=== PATIENT | female | born 1955 | race Caucasian/White ===

== ENCOUNTER → 2019-06-12 12:10 | Outpatient (BNVA) | payer BC, SELFPAY | PROVIDERS: Family Provider Family Medicine; PCP Family Medicine; Visit Provider Nurse Practitioner | DX: Z00.00 Encounter for general adult medical examination without abnormal findings (principal); N95.1 Menopausal and female climacteric states | CPT/HCPCS: 80053; 80061; 85025 ==

== ENCOUNTER 2020-04-16 10:50 | Outpatient (CLI) | payer BC, SELFPAY ==
--- NOTE | 2020-04-16 10:59 | XR_ITS ---
WS: [id number] Bilateral hips, AP and frog leg, 04/16/2020 Clinical Data: right and left hip pain Comparison: None. Findings: Right hip: No fractures or dislocations are seen. There is no narrowing, erosion or sclerosis. The adjacent righ t pelvis is unremarkable. There are probable uterine leiomyoma calcifications. Left hip: No fractures or dislocations are seen. There is no narrowing, erosion or sclerosis. The adjacent left pelvis is unremarkable. The probable uterine leiomyoma calcifications are seen. XR/XR hip BI 3-4V wo/w pel [id number] Impression: Negative bilateral hips.
== END 2020-04-16 10:51 | disposition home or self-care (01) ==
PROVIDERS: PCP Family Medicine; Visit Provider Family Medicine
DX: M25.552 Pain in left hip (principal); M25.551 Pain in right hip
CPT/HCPCS: 73522

== ENCOUNTER 2020-04-20 10:44 | Outpatient (RCR) | payer BC, SELFPAY | END 2020-04-29 23:59 | disposition home or self-care (01) | LOC: SPT 10:44 | PROVIDERS: PCP Family Medicine; Referring Provider Family Medicine; Visit Provider Family Medicine | DX: M25.551 Pain in right hip (principal); M25.552 Pain in left hip | CPT/HCPCS: 97110; 97161 ==

== ENCOUNTER 2020-04-30 06:00 | Outpatient (RCR) | payer BC, SELFPAY | END 2020-05-30 23:59 | disposition home or self-care (01) | LOC: SPT 06:00 | PROVIDERS: PCP Family Medicine; Referring Provider Family Medicine; Visit Provider Family Medicine | DX: M25.551 Pain in right hip (principal); M25.552 Pain in left hip | CPT/HCPCS: 97110 ==

== ENCOUNTER → 2020-06-17 10:39 | Outpatient (BNVA) | payer BC, SELFPAY | PROVIDERS: PCP Family Medicine; Visit Provider Family Medicine | DX: Z13.6 Encounter for screening for cardiovascular disorders (principal); Z12.31 Encounter for screening mammogram for malignant neoplasm of breast; Z78.0 Asymptomatic menopausal state; Z00.00 Encounter for general adult medical examination without abnormal findings; K51.919 Ulcerative colitis, unspecified with unspecified complications | CPT/HCPCS: 80053; 80061; 85025; 88175 ==

== ENCOUNTER 2020-07-06 07:15 | Outpatient (CLI) | payer BC, SELFPAY ==
--- NOTE | 2020-07-06 07:15 | US_ITS ---
WS: [id number] ULTRASOUND PELVIS TECHNIQUE: Transvaginal. CLINICAL INFORMATION: uterine fullness LMP: : No. COMPARISON: None. FINDINGS: Uterus Orientation: Anteverted. Size: 8.1 x 5.1 x 5.8 cm Masses: Multiple large shadowing fibroids in the uterus. The largest fibroids measure 5.1 x 5.8 cm, 3 .8 x 4.0 x 2.4 cm, and 3.1 x 3.4 x 3.2 CM. Cervix: Heterogeneous area in the cervix. Endometrium: Not identified Adnexa: Neither ovary is identified Free fluid: None Other findings: None. US/US transvaginal [id number] IMPRESSION: 1. Multiple shadowing fibroids fibroids noted in the uterus largest measuring 5.1 x 5.8 cm and 4.0 x 3.8 cm. 2. Endometrium is not visualized due to displacement by large fibroids. 3. Neither ovary is visualized. 4. Heterogeneity along the internal cervical os cervix. Recommend direct visua lization. 5. No free fluid in the cul-de-sac.
== END 2020-07-06 07:16 | disposition home or self-care (01) ==
LOC: RAD 07:17
PROVIDERS: PCP Family Medicine; Visit Provider Family Medicine
DX: Z01.419 Encounter for gynecological examination (general) (routine) without abnormal findings (principal); D25.9 Leiomyoma of uterus, unspecified
CPT/HCPCS: 76830

== ENCOUNTER 2020-07-28 13:20 | Outpatient (CLI) | payer BC, SELFPAY ==
--- NOTE | 2020-07-28 13:30 | MM_ITS ---
WS: [id number] BILATERAL DIGITAL SCREENING MAMMOGRAPHY WITH CAD CLINICAL INFORMATION: screening mammogram HISTORY: Screening mammogram. No current complaints. COMPARISON: TECHNIQUE: Bilateral CC and MLO views. FINDINGS: Scattered fibroglandular densities bilaterally. No suspicious focal mass, asymmetry, calcifications, or architectural distortion. No evidence of malignancy. MM/[place] [id number] IMPRESSION: BI-RADS: 1-Negative FOLLOW UP: 1 Year Follow-up Recommend return to annual screening mammography.
--- NOTE | 2020-07-28 13:55 | XR_ITS ---
WS: [id number] SCREENING DEXA SCAN [employer] CLINICAL INFORMATION: post-enopausal COMPARISON: None. FINDINGS: The L1-L4 bone mineral density measures 0.963 g/cm2. This corresponds to a T score score of -1.8 and Z score of -0.6. Left femoral neck bone mineral density measures 0.890 g/cm2. This corresponds to a T score of -0.9 an d Z score of 0.0. Right femoral neck bone mineral density measures 0.893 g/cm2. This corresponds to a T score -0.9of an d Z score of 0.0. Mean femoral neck bone mineral density measures 0.891 g/cm2. This corresponds to a T score of -0.9 an d Z score of 0.0. XR/XR DEXA axial skeleton* [id number] IMPRESSION: Osteopenia Patient's FRAX calculated 10 year probability for major osteoporotic fracture i s 14.3 % and osteoporotic hip fracture is 1.4%.
== END 2020-07-28 13:21 | disposition home or self-care (01) ==
LOC: RADSHAW 13:22
PROVIDERS: PCP Family Medicine; Visit Provider Family Medicine
DX: Z78.0 Asymptomatic menopausal state (principal); Z12.31 Encounter for screening mammogram for malignant neoplasm of breast; M85.89 Other specified disorders of bone density and structure, multiple sites
CPT/HCPCS: 77067; 77080

== ENCOUNTER → 2020-08-24 11:33 | Outpatient (BNVA) | payer BC, SELFPAY | PROVIDERS: PCP Family Medicine; Visit Provider Family Medicine | DX: M79.10 Myalgia, unspecified site (principal); Z13.6 Encounter for screening for cardiovascular disorders | CPT/HCPCS: 80053; 85025; 85651; 86038; 86140 ==

== ENCOUNTER → 2020-10-04 09:01 | Outpatient (BNVA) | payer BC, SELFPAY | PROVIDERS: PCP Family Medicine; Visit Provider Internal Medicine Rheumatology | DX: M35.3 Polymyalgia rheumatica (principal); Z79.52 Long term (current) use of systemic steroids; Z87.891 Personal history of nicotine dependence | CPT/HCPCS: 99204 ==

== ENCOUNTER → 2021-01-05 10:31 | Outpatient (BNVA) | payer BC, SELFPAY | PROVIDERS: PCP Family Medicine; Visit Provider Internal Medicine Rheumatology | DX: M35.3 Polymyalgia rheumatica (principal); Z71.89 Other specified counseling; Z79.899 Other long term (current) drug therapy | CPT/HCPCS: 36415; 80076; 82565; 85025; 86140 ==

== ENCOUNTER → 2021-01-10 13:25 | Outpatient (BNVA) | payer BC, SELFPAY | PROVIDERS: PCP Family Medicine; Visit Provider Internal Medicine Rheumatology | DX: M35.3 Polymyalgia rheumatica (principal); Z11.59 Encounter for screening for other viral diseases; Z11.1 Encounter for screening for respiratory tuberculosis; Z79.899 Other long term (current) drug therapy; Z79.52 Long term (current) use of systemic steroids; Z71.89 Other specified counseling; Z87.891 Personal history of nicotine dependence | CPT/HCPCS: 99214 ==

== ENCOUNTER 2021-04-21 11:01 | Outpatient (CLI) | payer BC, SELFPAY ==
[2021-04-21 11:16] LABS: Basophils % 0.6 %; Eosinophils # 0.1 10^3/uL (0.0-0.8); Eosinophils % 0.7 %; Hematocrit 41.7 % (37.0-47.0); Hemoglobin 13.5 g/dL (11.5-15.3); Lymphocytes # 2.2 10^3/uL (0.8-4.8); Lymphocytes % 32.1 %; Mean Corpuscular HGB Conc 32.4 g/dL (30.0-36.0); Mean Corpuscular Hemoglobin 27.9 pg (28.0-34.0); Mean Corpuscular Volume 86.2 fl (81-99); Mean Platelet Volume 10.2 fL (7.4-10.4); Monocytes # 0.4 10^3/uL (0.2-0.9); Monocytes % 6.3 %; Neutrophils # 4.04 10^3/uL (1.8-7.7); Neutrophils % 60.2 %; Nucleated Red Blood Cells % 0 %; Platelet Count 261 10^3/cmm (130-400); Red Blood Count 4.84 10^6/uL (4.1-5.3); Red Cell Distribution Width 12.8 % (12.1-15.1); White Blood Count 6.7 10^3/uL (4.0-10.0)
[2021-04-21 11:36] LABS: Alanine Aminotransferase 13 U/L (0-33); Albumin Level 4.1 g/dL (3.5-5.2); Alkaline Phosphatase 60 IU/L (35-105); Aspartate Amino Transferase 15 U/L (0-32); Globulin 2.6 g/dL (1.3-4.6); Glomerular Filtration Rate 100.6 mL/min (90-130); Total Bilirubin 0.3 mg/dL (0.15-1.2); Total Protein 6.7 g/dL (6.6-8.7)
== END 2021-04-21 11:02 | disposition home or self-care (01) ==
LOC: LAB 11:02
PROVIDERS: PCP Family Medicine; Visit Provider Internal Medicine Rheumatology
DX: M35.3 Polymyalgia rheumatica (principal); Z79.899 Other long term (current) drug therapy
CPT/HCPCS: 36415; 80076; 82565; 85025; 86140

== ENCOUNTER → 2022-01-05 09:09 | Outpatient (BNVA) | payer BC, SELFPAY | PROVIDERS: PCP Family Medicine; Visit Provider Family Medicine | DX: Z13.6 Encounter for screening for cardiovascular disorders (principal); N95.1 Menopausal and female climacteric states | CPT/HCPCS: 80053; 80061; 85025 ==

== ENCOUNTER 2022-04-28 07:53 | Outpatient (CLI) | payer BC, SELFPAY ==
--- NOTE | 2022-04-28 08:06 | US_ITS ---
WS: [id number] ULTRASOUND SOFT TISSUES RIGHT hand, third digit. HISTORY: M25.841 - Other specified joint disorders, right hand COMPARISON: None available. TECHNIQUE: 2-D and color Doppler imaging is submitted. Palpable area along the volar surface of the third digit of the RIGHT hand is identified. There is a hypoechoic slightly lobulated mass measuring 1.7 x 1.5 x 0.4 cm. There is no increased vascularity. This is very superficial mass. Very nonspecific appearance of the soft tissue mass. This is not particularly vascular. US/US soft tissue/extremity [id number] IMPRESSION: 1. Soft tissue mass associated with the volar aspect third finger RIGHT hand. Very nonspecific appearance by ultrasound. The differential includes nerve fuentes th tumor, hamartoma and fibromas. May need to be surgically excised for definit tanmay diagnosis. 2. No associated adjacent soft tissue edema.
== END 2022-04-28 07:54 | disposition home or self-care (01) ==
PROVIDERS: PCP Family Medicine; Visit Provider Internal Medicine Rheumatology
DX: M25.841 Other specified joint disorders, right hand (principal)
CPT/HCPCS: 76882

== ENCOUNTER → 2022-06-21 09:15 | Outpatient (BNVA) | payer BC, SELFPAY | PROVIDERS: PCP Family Medicine; Referring Provider Internal Medicine Rheumatology; Visit Provider Nurse Practitioner Family | DX: M67.441 Ganglion, right hand (principal) | CPT/HCPCS: 73130 ==

== ENCOUNTER 2022-08-15 10:36 | Outpatient (CLI) | payer BC, SELFPAY ==
--- NOTE | 2022-08-15 11:00 | MR_ITS ---
WS: [id number] MRI OF THE HAND WITHOUT GADOLINIUM ENHANCEMENT. INDICATION: Nodule/cyst. On the 3rd finger TECHNIQUE: MRI of the RIGHT hand without gadolinium enhancement. Coronal T1, STIR, sagittal T2, axial T2 fat sat, axial T1, coronal 3-D FSPGR FINDINGS: In the area of palpable concern there is a T2 hyperintense decreased T1 signal ovoid lesion measuring approximately 16.0 x 10.6 x 7.0 mm AP by transverse by craniocaudal. This extends along the dorsal slightly ulnar aspect of the 3rd middle phalanx. No significant bony er osion. No edema in the underlying phalanx. Soft tissue nodule extends along the extensor tendon sheat h. This has a solid appearance on the prior ultrasound and differential considerations described ramiro w. Small erosive T2 hyperintense lesions involving the 3rd distal middle phalanx extending to the IP cesar nt and 3rd distal proximal phalanx. Additional small periarticular erosions involving the metacarpal heads and distal proximal phalanges. Mild associated synovial thickening and edema involving the MCP and PIP joints MR/MR hand RT wo con* [id number] IMPRESSION: 1. Ovoid T2 hyperintense nodule in the area of palpable concern extending john g the 3rd dorsal middle phalanx slightly eccentric to the ulna aspect. This inv olves the extensor tendon sheath. This has a solid appearance and differential considerations include giant cell tumor of the tendon sheath, fibroma of the te ndon sheath, nerve sheath tumor, and less likely complex ganglion. 2. Periarticular erosive changes involving the MCP joints and PIP joints with relative sparing of the DIP joints. Recommend correlation with rheumatoid facto r and inflammatory arthropathies. 3. Mild synovial thickening and edema involving the MCP and PIP joints as well as the 1st MCP and DIP joint.
== END 2022-08-15 10:37 | disposition home or self-care (01) ==
LOC: RAD 10:38
PROVIDERS: PCP Family Medicine; Visit Provider Specialist
DX: M67.441 Ganglion, right hand (principal)
CPT/HCPCS: 73218

== ENCOUNTER 2022-08-16 10:51 | Outpatient (CLI) | payer BC, SELFPAY ==
--- NOTE | 2022-08-16 10:58 | MM_ITS ---
WS: [id number] Bilateral screening 3D tomosynthesis digital mammogram, 08/16/2022 Clinical Data: screening mammogram Comparison: 07/28/2020, 07/22/2018. Findings: The breast parenchymal pattern shows fibroglandular tissue. No spiculated masses or clustered calcifi cations are seen. There are no secondary signs of carcinoma. There are mole markers on the left breas t. MM/[place] [id number] Impression: 1. Negative bilateral mammogram unchanged. 2. Recommend annual screening mammograms. BIRADS: 1-Negative FOLLOW UP: 1 Year Follow-up The CAD title checker was used.
== END 2022-08-16 10:52 | disposition home or self-care (01) ==
LOC: RAD 10:53
PROVIDERS: PCP Family Medicine; Visit Provider Family Medicine
DX: Z12.31 Encounter for screening mammogram for malignant neoplasm of breast (principal)
CPT/HCPCS: 77063; 77067

== ENCOUNTER 2023-02-06 14:16 | Outpatient (CLI) | payer MEDICARE, SELFPAY ==
--- NOTE | 2023-02-06 14:30 | XR_ITS ---
WS: [id number] DEXA (DUAL ENERGY X-RAY ABSORPTIOMETRY) Bone mineral density was performed using a Bion[employer] machine. HISTORY: post-menopausal COMPARISON: 07/28/2020 Lumbar spine BMD (L1-L4): 0.966 g/cm2 T score: -1.8 Z score: -0.5 Total hip BMD: Left: 0.917 g/cm2. T score: -0.7 Z score: 0.3 Right: 0.926 g/cm2. T score: -0.6 Z score: 0.4 10 year probability of a major osteoporotic fracture is 14.7%. Compared to the prior study from 07/28/2020. Lumbar spine bone mineral density has increased by 0.3%. Bilateral hips bone mineral density has increased by 3.5%. IMPRESSION: OSTEOPENIA based upon the WHO classification for females. Significant increase in bone mineral density within the hips since the prior study.
== END 2023-02-06 14:17 | disposition home or self-care (01) ==
LOC: RAD 14:18
PROVIDERS: PCP Family Medicine; Visit Provider Family Medicine
DX: Z78.0 Asymptomatic menopausal state (principal); M85.80 Other specified disorders of bone density and structure, unspecified site
CPT/HCPCS: 77080

== ENCOUNTER → 2023-07-16 11:54 | Outpatient (BNVA) | payer MEDICARE, SELFPAY | PROVIDERS: PCP Family Medicine; Visit Provider Family Medicine | DX: Z13.6 Encounter for screening for cardiovascular disorders (principal) | CPT/HCPCS: 80053; 80061; 85025 ==

== ENCOUNTER 2024-06-03 08:43 | Outpatient (CLI) | payer MEDICARE, SELFPAY ==
--- NOTE | 2024-06-03 08:49 | MM_ITS ---
WS: [id number] BILATERAL 3D TOMOSYNTHESIS DIGITAL SCREENING MAMMOGRAPHY WITH CAD CLINICAL INFORMATION: SCREENING HISTORY: Screening mammogram. No current complaints. COMPARISON: 2022 TECHNIQUE: Bilateral CC and MLO views. FINDINGS: Scattered fibroglandular densities bilaterally. No suspicious focal mass, asymmetry, calcifications, or architectural distortion. No evidence of malignancy. MM/MM scr BI tomosynthesis [id number] IMPRESSION: DENSITY: There are scattered areas of fibroglandular density. BI-RADS: 1 - Negative. FOLLOW UP: 1 Year Follow-up Recommend return to annual screening mammography.
== END 2024-06-03 08:44 | disposition home or self-care (01) ==
PROVIDERS: PCP Family Medicine; Visit Provider Family Medicine
DX: Z12.31 Encounter for screening mammogram for malignant neoplasm of breast (principal); R92.323 Mammographic fibroglandular density, bilateral breasts
CPT/HCPCS: 77063; 77067

== ENCOUNTER 2024-09-13 16:09 | Emergency (ER) | payer MEDICARE, SELFPAY ==
[2024-09-13 16:47] VITALS: BP 142/82; PULSE 66; RESP 18; TEMP 36.5; O2SAT 99
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
--- NOTE | 2024-09-13 18:36 | XRR_ITS ---
PROCEDURE INFORMATION: Exam: XR Left Forearm Exam date and time: 09/13/2024 7:22 PM Age: 69 years old Clinical indication: Injury or trauma; Fall; Fracture, traumatic injury; Closed fracture; Radius and ulna; Left; Additional info: Post reduc TECHNIQUE: Imaging protocol: Radiologic exam of the left forearm. Views: 2 views. COMPARISON: CR (UP EXM, ) 09/13/2024 5:17 PM FINDINGS: Bones/joints: Improved alignment of distal radius fracture status post reduction. Intra-articular fracture planes present. Stable styloid process fracture. Faint lucency along the scaphoid waist likely represents normal patient anatomy. Soft tissues: Soft tissues appear swollen and edematous about the wrist. XR/XR forearm LT 2V [id number] IMPRESSION: 1. Improved alignment of distal radius fracture status post reduction. Intra-articular fracture planes present. 2. Stable styloid process fracture. 3. Faint lucency along the scaphoid waist likely represents normal patient anatomy. Recommend follow-up dedicated wrist radiograph in 7-10 days to exclude occult scaphoid waist fracture.
--- NOTE | 2024-09-13 18:36 | XRR_ITS ---
PROCEDURE INFORMATION: Exam: XR Left Ankle Exam date and time: 09/13/2024 7:29 PM Age: 69 years old Clinical indication: Injury or trauma; Fall; Blunt trauma; Ankle; Left; Additional info: L ankle inj TECHNIQUE: Imaging protocol: Radiologic exam of the left ankle. Views: 3 or more views. COMPARISON: US soft tissue/extremity [id number] 04/28/2022 8:11 AM FINDINGS: Bones/joints: Minimal calcaneal spurring. Probable fracture of the distal lateral malleolus, poorly visualized. Soft tissues: Soft tissue swelling about the lateral malleolus. XR/XR ankle LT min 3V* [id number] IMPRESSION: 1. Probable fracture of the distal lateral malleolus, poorly visualized. 2. Soft tissue swelling about the lateral malleolus.
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
[2024-09-13] MEDS: ondansetron 2 mg/ML SDV 2 mL 4 MG IVP (19:03)
[2024-09-13 19:04] VITALS: RESP 16; O2SAT 99
[2024-09-13] MEDS: morphine 4 mg/mL SDV 1 mL IVP (19:04)
[2024-09-13 19:13] VITALS: BP 170/76; PULSE 71; RESP 15; O2SAT 97
[2024-09-13 19:19] VITALS: BP 149/59; PULSE 73; RESP 12; O2SAT 99
[2024-09-13] MEDS: propofol 10 mg/mL SDV 20 mL 150 MG IVP (19:24)
--- NOTE | 2024-09-13 19:39 | PC.NURSE ---
WASTED 30MG PROPOFOL WITH OLIVA FERNANDEZ in [facility] and [facility] btl.
[2024-09-13 20:01] VITALS: BP 158/71; PULSE 65; RESP 16; O2SAT 97
[2024-09-13 21:05] VITALS: BP 133/77; PULSE 69; O2SAT 99
[2024-09-13] MEDS: HYDROcodone-acetaminophen 5-325 mg Tablet 1 TAB PO (21:05)
== END 2024-09-13 21:06 | disposition home or self-care (01) ==
PROVIDERS: Emergency Provider Emergency Medicine; PCP Family Medicine
DX: S82.832A Other fracture of upper and lower end of left fibula, initial encounter for closed fracture (principal); S52.502A Unspecified fracture of the lower end of left radius, initial encounter for closed fracture; V86.59XA Driver of other special all-terrain or other off-road motor vehicle injured in nontraffic accident, initial encounter
CPT/HCPCS: 25605; 29125; 29515; 36415; 73090; 73110; 73610; 96374; 96375; 99152; 99284; J2270; J2405; J2704; J9999

== ENCOUNTER 2024-09-14 08:54 | Emergency (ER) | payer MEDICARE, SELFPAY ==
[2024-09-14 09:08] VITALS: BP 105/60; PULSE 89; RESP 17; TEMP 36.8; O2SAT 100; BMI 25.8
--- NOTE | 2024-09-14 11:08 | ED_ITS ---
HPI - Extremity Problem General: Chief complaint: Extremity Injury, Upper Stated complaint: lft arm pain, swelling Time Seen by Provider: 09/14/24 10:49 Source: patient Mode of arrival: ambulatory Limitations: no limitations History of Present Illness: 69-year-old female seen here yesterday f or radius and ulna fracture states she feels like her splint is too tight she been having some pain in her fingers she denies any decrease sensation rates her pain a 6 out of 10 Associated symptoms: Deny chest pain, fever(s) or rash Related Data Previous Rx's ?Medication ?Instructions ?Recorded alendronate 70 mg tablet (Fosamax) 70 mg PO .once week ly #12 tabs 02/09/23 venlafaxine 37.5 mg tablet See Rx Instructions .Route 01/17/24 .COMPLEX #90 tabs hydrocodone 5 mg-acetaminophen 325 1 tab PO Q8H PRN pa in #10 tabs 09/13/24 mg tablet Allergies Allergy/AdvReac Type Severity Reaction Status Date / Time Sulfa (Sulfonamide Allergy ALGY-Rash Verified 07/16/23 11:14 Antibiotics) Review of Systems Const: Denies: fever(s), chills, body aches or change in appetite ENMT: Denies: throat pain or dental pain Card: Denies: chest pain Resp: Denies: dyspnea GI: Denies: abdominal pain, nausea, vomiting or diarrhea : Denies: dysuria Musc: Reports: extremity pain; Denies: neck pain or back pain Skin/Breast: Denies: rash Neuro: Denies: headache(s) PFS ED PFSH: Medical History Mucous cyst of finger Immunization counseling Chronic steroid use Polymyalgia rheumatica Ulcerative colitis, chronic Menopausal syndrome Surgical History S/P tonsillectomy S/P appendectomy (~2013) Family History Mother Heart disease Stroke Grandfather Heart disease maternal Hypertension maternal Family/Other Heart disease maternal uncles x5 Other Colon cancer Denies family history of Ovarian cancer Diabetes Clotting disorder Hyperlipidemia Breast cancer Anesthesia complication Bleeding disorder Uterine cancer Thyroid disease Social History Smoking and tobacco/nicotine status: never used tobacco/nicotine Second hand smoke exposure: No Alcohol intake: current Alcohol intake frequency: holidays/special occasions only Substance/Drug Use: never Physical Exam Const: COMMON NORMALS: no acute distress, patient oriented x3 and healthy appearing HENMT: COMMON NORMALS: normocephalic and atraumatic HEAD & SCALP: normocephalic and atraumatic Eye: COMMON NORMALS: conjunctivae normal CONJUNCTIVA: Yes conjunctivae normal Neck/C-Spine: COMMON NORMALS: full ROM and supple Chest: COMMONS NORMALS: normal inspection of the chest Resp: COMMON NORMALS: normal respiratory effort, No retractions, No use of accessory muscles and clear to auscultation bilaterally AUSCULTATION: clear to auscultation bilaterally Cardio: COMMON NORMALS: regular rate RATE: regular rate Extremity: NARRATIVE EXTREMITY EXAM: Removed patient's splint no signs of compartment syndrome's good sensation to her fingers did loosen up the Cj wrap and she felt much improved did rewrap it Neuro: COMMON NORMALS: patient oriented x3, moves all extremities and no focal motor deficits Psych: COMMON NORMALS: mental status grossly normal, Normal thought process present and cooperative THOUGHT PROCESS: Normal thought process present Skin: COMMON NORMALS: no rashes or lesions noted and no wounds GENERAL SKIN EXAM: no rashes or lesions noted Course Vital Signs: Vital signs: Vital Signs Temperature 98.3 F 09/14/24 09:08 Pulse Rate 89 09/14/24 09:08 Respiratory Rate 17 09/14/24 09:08 Blood Pressure 105/60 09/14/24 09:08 Pulse Oximetry 100 09/14/24 09:08 Oxygen Delivery Me thod Room Air 09/14/24 09:08 MDM - Extremity (Nontraumatic) Medical Decision Making Patient presents here with arm pain likely from Cj wrap being slightly too tight I did loosen it she felt much improved had no signs of compartment syndrome will discharge she is to follow-up with Ortho. Medical Records I reviewed the patient's medical records. No radiology studies performed this visit Discharge Plan Discharge Patient Disposition: Home Clinical Impression: Fracture of distal end of fibula, Distal radial fracture Condition: Stable Prescriptions: No Action alendronate [Fosamax] 70 mg tablet 70 mg PO .once weekly Qty: 12 3RF venlafaxine 37.5 mg tablet See Rx Instructions .ROUTE .COMPLEX Qty: 90 1RF Dose Instruction: TAKE 1 TABLET BY MOUTH EVERY DAY AT BEDTIME Rx Instructions: TAKE 1 TABLET BY MOUTH EVERY DAY AT BEDTIME hydrocodone-acetaminophen 5-325 mg tablet 1 tab PO Q8H PRN (Reason: pain) Qty: 10 0RF Discharge Orders: Discharge ED (Routine); Ordered 09/14/24 Ordered By: Barrett Gutierrez Referrals: Kimmy Cazares MD [Primary Care Provider, Family Practice] Discharge Diet: Advance as tolerated Discharge Activity: Resume usual activity Patient Instructions: Wrist Fracture in Adults (ED) Print Language: Bulgarian Coding Level of Care Code ED Ornamental Machine Operator for Carlos Anderson
== END 2024-09-14 11:16 | disposition home or self-care (01) ==
PROVIDERS: Emergency Provider Emergency Medicine; PCP Family Medicine
DX: S82.832D Other fracture of upper and lower end of left fibula, subsequent encounter for closed fracture with routine healing (principal); S52.502D Unspecified fracture of the lower end of left radius, subsequent encounter for closed fracture with routine healing; X58.XXXD Exposure to other specified factors, subsequent encounter
CPT/HCPCS: 99281

== ENCOUNTER → 2024-09-18 14:34 | Outpatient (BNVA) | payer MEDICARE, SELFPAY | PROVIDERS: PCP Family Medicine; Visit Provider Orthopaedic Surgery | DX: Z01.818 Encounter for other preprocedural examination (principal); Z09 Encounter for follow-up examination after completed treatment for conditions other than malignant neoplasm; S82.832A Other fracture of upper and lower end of left fibula, initial encounter for closed fracture; S52.502A Unspecified fracture of the lower end of left radius, initial encounter for closed fracture; X58.XXXA Exposure to other specified factors, initial encounter | CPT/HCPCS: 36415; 73090; 80053; 81001; 85025; 99204 ==

== ENCOUNTER 2024-09-24 13:59 | Day surgery (SDC) | payer MEDICARE, SELFPAY ==
[2024-09-24] VITALS (10 sets, daily range): BP systolic 107–141; BP diastolic 63–80; PULSE 69–88; RESP 16–19; TEMP 36.2–36.8; O2SAT 96–99; BMI 25.8
[2024-09-24] MEDS: sodium chloride 0.9% 1,000 ML 30 ML IV (14:27)
--- NOTE | 2024-09-24 14:35 | PC.NURSE ---
supraclavicular block
--- NOTE | 2024-09-24 14:36 | W.PM.OPSUD ---
Surgery/Procedure H&P Update DATE OF PROCEDURE: September 24, 2024 DATE H&P PERFORMED: 09/18/24 H&P UPDATE INFORMATION: I have reviewed H&P completed within last 30 days, I have examined patient prior to procedure and No changes to prior documentation PREOP DIAGNOSIS: Left intra-articular distal radius fracture PLANNED PROCEDURE: Operation Date: 09/24/24 15:35 Proposed Procedures p ORIF Wrist ORIF Distal Radius(Left) - Sharif Alvarez DO
[2024-09-24] MEDS: ceFAZolin 2,000 mg SDV 2000 MG IVP (14:49)
--- NOTE | 2024-09-24 15:09 | ANES.PREANE2 ---
Pre-Anesthetic Assessment Height/Weight: Height 1.68 m Weight 72.575 kg Temp Pulse Resp BP Pulse Ox O2 Del Method 98.2 F 88 16 126/76 99 Room Air 09/24/24 14:15 09/24/24 14:15 09/24/24 14:15 09/24/24 14:15 09/24/24 14:15 09/24/24 14:15 Preop Diagnosis: Left intra-articular distal radius fracture Operation Date: 09/24/24 15:35 Proposed Procedures p ORIF Wrist ORIF Distal Radius(Left) - Sharif Alvarez, DO Familial anesthetic complications: none Was Beta Karen taken within 24 hours: N/A Was Clonidine taken within 24 hours: N/A Last intake: Intake Last Liquid Date 09/24/24 Last Liquid Time 10:00 Last Solid Date 09/23/24 Last Solid Time 18:30 Social No alcohol and No tobacco Exam alert, oriented x 3, clear to auscultation bilaterally and regular rate & rhythm Airway Submandibular: within normal limits Cervical ROM: within normal limits Mallampati: Class II Dentition: full History/ROS No significant history except as noted and No significant complaints Pulmonary None reported CV/HEM None reported None reported Hepatic None reported GI None reported Musc/skel None reported Neuropsych Anxiety and None reported Anesthetic Plan ASA status: 2 Anesthesia: General and Regional (specify below) Other: Supraclavicular block Risk of > 500 ml blood loss (7ml/kg in children): No Medications/Allergies Home Medications ?Medication ?Instructions ?Recorded ?Confirmed ?Last Taken ?Type Stirrup #1 ea 09/18/24 09/18/24 Unknown Rx Wrist brace #1 ea 09/18/24 09/18/24 Unknown Rx wrist brace #1 ea 09/18/24 09/18/24 Unknown Rx venlafaxine 37.5 mg tablet 37.5 mg PO DAILY 09/23/24 09/24/24 09/23/24 History acetaminophen 325 mg tablet 650 mg PO QID PRN Pain 09/24/24 09/24/24 09/24/24 10:00 History (Tylenol) Allergies Allergy/AdvReac Type Severity Reaction Status Date / Time Sulfa (Sulfonamide Allergy ALGY-Rash Verified 09/18/24 14:24 Antibiotics) Current Medications Generic Name Dose Route Start Last Admin Trade Name Freq PRN Reason Stop Dose Admin Sodium Chloride 1,000 mls @ 30 mls/hr 09/24/24 14:15 09/24/24 14:27 Sodium Chloride 0.9% IV 09/25/24 14:14 30 mls/hr .Q24H EDGAR Administration PFSH Anesthesia Medical History Mucous cyst of finger Immunization counseling Chronic steroid use Polymyalgia rheumatica Ulcerative colitis, chronic Menopausal syndrome Surgical History S/P tonsillectomy S/P appendectomy (~2013) Family History Mother Heart disease Stroke Grandfather Heart disease maternal Hypertension maternal Family/Other Heart disease maternal uncles x5 Other Colon cancer Denies family history of Ovarian cancer Diabetes Clotting disorder Hyperlipidemia Breast cancer Anesthesia complication Bleeding disorder Uterine cancer Thyroid disease Social History Smoking and tobacco/nicotine status: unknown if used tobacco/nicotine Second hand smoke exposure: No Alcohol intake: current Alcohol intake frequency: holidays/special occasions only Substance/Drug Use: never
--- NOTE | 2024-09-24 15:15 | ANES.PROC ---
Anesthesia Procedures Procedure/Date: 09/24/24 Nerve Block ^: Nerve Block 1: Main Anesthesia: general anesthesia Time Out Performed: Yes Consent: requested by attending/covering physician, from patient, risks and benefits reviewed and patient agrees to proceed Nerve block location: supraclavicular Anesthesia monitors applied: pulse oximetry, EKG and BP cuff Nerve block position: semi sitting Anesthetic Used: ropivicaine 0.5% Amount of anesthesia used (mL): 30 Ultrasound used to: recognize landmarks, visualize and ID brachial plexus and in supraclavicular region Nerve Stimulator Used?: No Interscalene/Femoral BLK: 4 stimuplex 21 g needle used for position and inplane approach, visualize local anesthetic spread and no vascular puncture identified Injection: neg aspiration of heme Patient Tolerated Procedure: well and no complications Complications: none
--- NOTE | 2024-09-24 15:43 | XR_ITS ---
WS: [id number] Left wrist, C-arm fluoroscopy views, 09/24/2024 Clinical Data: orif wrist Comparison: Left wrist, 09/13/2024 Findings: Dr. Alvarez placed a ventral plate with multiple screws to reduce the distal left radial fracture. XR/XR wrist LT 2V 10210 Impression: Internal fixation of distal left radial fracture.
--- NOTE | 2024-09-24 16:04 | PM.OP ---
Operative Report Date of procedure: September 24, 2024 Pre-op diagnosis: Left intra-articular distal radius fracture Post-op diagnosis: same Procedure done: Open reduction internal fixation of left distal radius fracture Surgeon: Sharif Alvarez DO Estimated blood loss (mL): 5 Procedure: Open reduction internal fixation of left distal radius fracture Patient brought to the operative suite after undergoing anesthesia patient was placed in the supine position. Arteries appear well-padded. Patient's prepped and draped also fashion. Skin incision was made over the volar aspect of the wrist. FCR tendon is identified reflected medially radial artery is identified and reflected radially the pronator quadratus is reflected ulnarly. Fracture is identified split in the fractures at identified through the intra-articular surface. Fracture was reduced and then using a volar plate from [employer] the cortical screws were placed in first 2 compressed with good bone and act as a buttress to reduce the volar pins. The distal locking screws then placed all cortical screws. And then 2 more screws were placed in the shaft. AP lateral fluoroscopy ensured the fracture was in good position. Wounds were irrigated closed with Vicryl and Monocryl suture. Sterile dressings were applied patient was placed in a volar splint and transferred to the PACU in stable condition.
--- NOTE | 2024-09-24 17:25 | ANE.PACU2 ---
Inpatient post-anesthesia follow up: Airway intact: Yes Vital signs: Temperature 97.6 F Pulse Rate 82 Respiratory Rate 16 Blood Pressure 139/63 Pulse Oximetry 97 Oxygen Delivery Me thod Room Air Oxygen Flow Rate Fraction of Inspir ed Oxygen Hydration adequate: Yes Nausea and vomiting: No Pain level: 1 Mental status: Baseline
== END 2024-09-24 17:25 | disposition home or self-care (01) ==
PROVIDERS: PCP Family Medicine; Visit Provider Orthopaedic Surgery
PROC: (CPT 25608; principal; 2024-09-24 15:25)
DX: S52.509A Unspecified fracture of the lower end of unspecified radius, initial encounter for closed fracture (principal); X58.XXXA Exposure to other specified factors, initial encounter; F41.9 Anxiety disorder, unspecified
CPT/HCPCS: 25608; 73100; 76000; C1713; J0690; J1100; J2250; J2405; J2704; J2795; J3010; J7030; J9999

== ENCOUNTER → 2024-10-07 15:01 | Outpatient (BNVA) | payer MEDICARE, SELFPAY | PROVIDERS: PCP Family Medicine; Visit Provider Orthopaedic Surgery | DX: Z48.89 Encounter for other specified surgical aftercare (principal) | CPT/HCPCS: 99024 ==

== ENCOUNTER → 2024-11-06 13:53 | Outpatient (BNVA) | payer MEDICARE, SELFPAY | PROVIDERS: PCP Family Medicine; Visit Provider Orthopaedic Surgery | DX: Z48.89 Encounter for other specified surgical aftercare (principal); S52.572D Other intraarticular fracture of lower end of left radius, subsequent encounter for closed fracture with routine healing; X58.XXXD Exposure to other specified factors, subsequent encounter | CPT/HCPCS: 73110; 99024 ==

== ENCOUNTER 2024-12-01 14:22 | Outpatient (CLI) | payer MEDICARE, SELFPAY ==
--- NOTE | 2024-12-01 14:34 | CT_ITS ---
WS: [id number] CT ABDOMEN AND PELVIS WITH AND WITHOUT CONTRAST HISTORY: CHRONIC EPIGASTRIC PAIN TECHNIQUE: Unenhanced 5 mm axial imaging first performed through the abdomen. Post contrast imaging through the abdomen and pelvis. Oral contrast has been provided. Sagittal and coronal reformats are submitted. All CT scans at [facility] use at least one of these dose optimization techniques: automated exposure control; mA and/or kV adjustment per patient size (includes targeted exams where dose is matched to clinical indication); or iterative reconstruction. CONTRAST: Omnipaque 350; 95 mL IV. DLP: 664.68 mGy.cm COMPARISON: None available. Lung bases are clear. Normal size heart. Very small hiatal hernia. Normal size liver. There is a very small 4 mm nodule LEFT lobe of the liver which is indeterminate. No intrahepatic duct dilatation. Normal portal vein. Normal gallbladder and spleen. Normal pancreas. Normal adrenal glands. Simple cyst upper pole RIGHT kidney 4.3 x 3.5 x 4.0 cm. No renal obstruction. There is a tiny calcification which is nonobstructing in the lower pole RIGHT kidney. Normal LEFT kidney. Normal aorta. Stomach is well distended with oral contrast. No small bowel obstruction. Prior appendectomy. Surgical clips are noted in the RIGHT lower quadrant. Mild constipation with tortuous colon. There is a change in caliber of the colon beginning in the distal transverse colon. There is circumferential colonic wall thickening with enhancement and narrowing of the lumen. Pericolonic hazy attenuation and edema. This abnormality extends over several centimeters, best estimate 10 cm. There is a focal patulous segment near the splenic flecture that is spared. There is colonic wall thickening on both sides at this patulous dilated segment. There are few small central mesenteric lymph nodes. No pelvic adenopathy. No ascites. Uterus is abnormal. Lobulated enlarged uterus with numerous masses and dense coarse calcifications. Most consistent with a fibroid uterus with degenerating fibroids. No adnexal masses. CT/CT abdomen pelvis wo/w [id number] IMPRESSION: 1. Long caliber acute circumferential colonic wall thickening with pericolonic edema involving the mid to distal transverse colon and the proximal descending colon. There is a patulous segment of colon in the central segment of the abno rmality. There is colonic wall thickening and narrowing of the lumen. Due to th e extensiveness this is probably infectious or inflammatory in etiology. Neopla sm needs to be excluded also but thought less likely. 2. No significant adenopathy identified. 3. Mild constipation and tortuous colon. 4. Indeterminate 4 mm nodule LEFT lobe of the liver. Ultrasound may be attempt ed of the liver to evaluate. This may not be visible by ultrasound due to its s mall size. 5. Simple cyst upper pole RIGHT kidney, 4.3 cm. 6. Enlarged, lobulated fibroid uterus. 7. Prior appendectomy.
[2024-12-01] MEDS: iohexol 350 mg/mL 500 mL Btl (per mL) PO (15:36)
[2024-12-01] MEDS: iohexol 350 mg/mL 500 mL Btl (per mL) IV (16:00)
== END 2024-12-01 14:23 | disposition home or self-care (01) ==
PROVIDERS: PCP Family Medicine; Visit Provider Electrodiagnostic Medicine
DX: N28.1 Cyst of kidney, acquired (principal); Z90.49 Acquired absence of other specified parts of digestive tract; N85.2 Hypertrophy of uterus; K59.00 Constipation, unspecified
CPT/HCPCS: 74178

== ENCOUNTER → 2024-12-16 14:54 | Outpatient (BNVA) | payer MEDICARE, SELFPAY | PROVIDERS: PCP Family Medicine; Visit Provider Orthopaedic Surgery | DX: Z98.890 Other specified postprocedural states (principal); Z48.89 Encounter for other specified surgical aftercare | CPT/HCPCS: 73110; 99024 ==

== ENCOUNTER → 2025-01-27 13:02 | Outpatient (BNVA) | payer MEDICARE, SELFPAY | PROVIDERS: PCP Family Medicine; Visit Provider Orthopaedic Surgery | DX: Z47.89 Encounter for other orthopedic aftercare (principal) | CPT/HCPCS: 73110; 99024; 99213 ==

== ENCOUNTER 2025-02-11 13:50 | Outpatient (RCR) | payer MEDICARE, SELFPAY | END 2025-02-27 23:59 | disposition home or self-care (01) | LOC: SOT 13:50 | PROVIDERS: Visit Provider Orthopaedic Surgery | DX: S52.502A Unspecified fracture of the lower end of left radius, initial encounter for closed fracture (principal) | CPT/HCPCS: 97022; 97110; 97140; 97165; 97530 ==

== ENCOUNTER 2025-02-28 05:00 | Outpatient (RCR) | payer MEDICARE, SELFPAY | END 2025-03-29 23:59 | disposition home or self-care (01) | LOC: SOT 05:00 | PROVIDERS: Visit Provider Orthopaedic Surgery | DX: S52.502A Unspecified fracture of the lower end of left radius, initial encounter for closed fracture (principal); X58.XXXA Exposure to other specified factors, initial encounter | CPT/HCPCS: 97022; 97110; 97140 ==